=== PATIENT | female | born 1955 | race African-American/Black ===

== ENCOUNTER 2022-07-07 09:24 | Emergency (ER) | payer SELFPAY ==
--- NOTE | ~2022-07-07 | XR_ITS ---
EXAMINATION: XR HAND, LEFT CLINICAL INFORMATION: Fall. COMPARISON: None TECHNIQUE: PA, lateral, and oblique views of the left hand. FINDINGS: Age indeterminate deformity of the triquetrum/pisiform. Carpal rows alignment is maintained. Moderate degenerative arthritis of the first CMC joint. No unexpected radiopaque foreign bodies. XR/XR hand LT min 3V IMPRESSION: 1. Age indeterminate deformity of the triquetrum/pisiform. Correlate for point tenderness. 2. Moderate degenerative arthritis of the first CMC joint.
--- NOTE | ~2022-07-07 | XR_ITS ---
EXAMINATION: XR KNEE, RIGHT CLINICAL INFORMATION: Pain after fall. COMPARISON: None TECHNIQUE: Four views of the right knee. FINDINGS: No acute fracture or subluxation. Severe tricompartmental degenerative osteoarthritis with joint space narrowing, subcortical sclerosis and marginal osteophytes. Small joint effusion. No chondrocalcinosis. XR/XR knee RT 4V IMPRESSION: 1. No acute fracture or subluxation. 2. Severe tricompartmental degenerative osteoarthritis. 3. Small joint effusion.
[2022-07-07 10:15] VITALS: BP 134/74; PULSE 70; RESP 16; O2SAT 99; BMI 29.4
--- NOTE | 2022-07-07 11:02 | ED_ITS ---
HPI - Fall General Chief Complaint: Fall Stated Complaint: Fall Time Seen by Provider: 07/07/22 11:01 Source: patient Mode of arrival: ambulatory Limitations: no limitations History of Present Illness HPI Narrative: 67 yo female presents to the ER for evaluation right knee pain, back pain and left hand pain after she fell on the steps at home couple of days ago. She tried to come to the ER yesterday but ended up leaving without treatment because the wait was too long. She reports the right knee is swollen and painful when she walks. She also feels a ?bump? in the middle of her left hand. She fell with her hand outstretched. She reports her lower back hurts all across lower portion, worse with movement. She has been taking Tylenol with minimal relief. She is able to walk with a steady gait. She denies hitting her head or losing consciousness at the time of fall. She is not on a blood thinner. MD complaint: fall Onset (ago): day(s) (2) Fall from: standing Fall witnessed: no Place fall occurred: home Loss of consciousness: none Prolonged down time: no Symptoms prior to fall: none Context: tripped/slipped Location of injury: back Location of injury - extremities: left: hand and right: knee Severity: moderate Severity scale (1-10): 6 Quality: aching Associated symptoms (after fall): denies Related Data Previous Rx's Medication Instructions Recorded naproxen 500 mg tablet 500 mg PO BID PRN pain #20 tabs 07/07/22 Allergies Allergy/AdvReac Type Severity Reaction Status Date / Time No Known Allergies Allergy Verified 07/07/22 10:15 Review of Systems Review of Systems: Yes all other systems are reviewed and are negative [facility] Social History Social History Advance Directives: No Advance Directives Information Provided: No Physical Exam Vital Signs: Vital Signs: Last Vital Signs Temp 98.5 F 07/07/22 11:30 Pulse 76 07/07/22 11:30 Resp 20 07/07/22 11:30 BP 150/77 H 07/07/22 11:30 Pulse Ox 100 07/07/22 11:30 O2 Del Method 07/07/22 11:30 BMI result Body Mass Index 29.4 Appearance: Alert. Oriented X3. No acute distress. HEENT: normal inspection CVS: Normal heart rate and rhythm. Pulses normal. Respiratory: No respiratory distress. Skin: Skin warm and dry. Normal skin color. Normal skin turgor. No rashes. Extremities: Right knee with mild generalized swelling normal range of motion of the knee, no joint laxity appreciated. Pain with varus and valgus stress. Left hand with tenderness on the palmar aspect of the 3rd and 4th MCP. Equal performance improvement consultant strength bilaterally. Neurovascularly intact. 2+ radial pulse. Neuro: Oriented X 3. No motor deficit. No sensory deficit. Slow but steady gait Course Course Course Narrative: 67-year-old female presenting to the ER with right knee pain, left hand pain and low back pain after a mechanical fall 2 days ago. X-ray of the right knee is showing severe osteoarthritis and small joint effusion. X-ray of the left hand is showing question of a age indeterminate deformity of the triquetrum/pisiform. She has no point tenderness over this area. Unlikely acute fracture. Kathi from Orthopedics was contacted, recommended velcro wrist splint as needed for comfort. Knee was placed in Caesar wrap for compression and support. She was encouraged follow-up with orthopedics for further evaluation of her severe osteoarthritis. Patient stable for discharge home with anti-inflammatories, conservative management and follow-up with her PCP and Orthopedics. Patient agrees with plan. Medical Decision Making Differential Diagnosis Differential Diagnoses: The differential diagnosis associated with the presentation includes Knee sprain, strain, contusion, ligament injury, meniscus injury, arthritis, left hand contusion, acute fracture, low back strain, spasm, less likely fracture or compression deformity. Independent Interpretation I performed an independent interpretation of an: Plain X-Ray Interpretation: xr hand - no appreciated acute fracture of the bones in the hand Radiology Impression Discussion of test interpretation with radiology: I have reviewed the radiolog ist's reading. Radiologist Impression: left hand XRIMPRESSION: 1.? Age indeterminate deformity of the triquetrum/pisiform. Correlate for point tenderness. 2.? Moderate degenerative arthritis of the first CMC joint. XR/XR knee RT 4V IMPRESSION: 1.? No acute fracture or subluxation. 2.? Severe tricompartmental degenerative osteoarthritis. 3.? Small joint effusion. ? Prescription Management I considered prescription management with: Pain Medication NSAID for OA Critical Care Time Critical Care Time Critical Care Time: No Discharge Plan Discharge Clinical Impression: Osteoarthritis of right knee, Effusion of right knee, Left hand pain Patient Disposition: Home, Self-Care Instructions: Osteoarthritis (ED), Swollen Knee Joint (ED) Additional Instructions: Your knee x-ray showed severe degenerative osteoarthritis in the knee along with small amount of fluid. Recommend wearing the Caesar wrap for compression and support, recommend ice several times per day. Recommend following up with orthopedics for further evaluation. Your hand x-ray showed a possible ?deformity and ?of 1 of the bones in your hand, however this is not correlate with where he were tender on examination. There is no acute fractures in the x-ray. Where the provided velcro wrist splint as needed for comfort. Take the prescribed medication as needed for pain. Follow-up with primary care doctor If you develop new or worsening symptoms call 911 or come back to the ER for further evaluation. Prescriptions: New naproxen 500 mg tablet 500 mg PO BID PRN (Reason: pain) Qty: 20 0RF Referrals: [facility] [place] [facility] [Provider Group] Interventions: ED Discharge Assessment Last Done: 07/07/22 12:59 Discharge Date/Time: 07/07/22 12:59
[2022-07-07 11:30] VITALS: BP 150/77; PULSE 76; RESP 20; TEMP 36.9; O2SAT 100
--- NOTE | 2022-07-07 13:05 | MHC.EDTECH ---
Placed Left wrist splint on patient. Shasha Hannah
== END 2022-07-07 12:59 | disposition home or self-care (01) ==
PROVIDERS: Emergency Provider Emergency Medicine
DX: M17.11 Unilateral primary osteoarthritis, right knee (principal); M25.461 Effusion, right knee; M25.561 Pain in right knee; M79.642 Pain in left hand; Z91.81 History of falling
CPT/HCPCS: 73130; 73564; 99283

== ENCOUNTER 2022-09-03 14:31 | Outpatient (REF) | payer MEDICARE, MEDICAID, SELFPAY ==
--- NOTE | ~2022-09-03 | XR_ITS ---
EXAMINATION: XR KNEE, RIGHT XR KNEE, BILATERAL CLINICAL INFORMATION: Knee pain. COMPARISON: 07/07/2022 TECHNIQUE: AP standing view of both knees and sunrise view of the right knee. FINDINGS: There is again noted to be significant narrowing of the lateral joint space compartment with marginal spurring involving all 3 joint space compartments of the right knee. There is narrowing of the left medial joint space with bilateral spurring of the medial and lateral joint space compartments. There is noted to be spurring about the patellofemoral joint with some narrowing of the lateral joint space compartment. XR/XR knee standing BI IMPRESSION: Tricompartment degenerative change of the right knee. Degenerative change of the medial and lateral joint space compartments of the left knee, medial greater than lateral. No significant change.
--- NOTE | ~2022-09-03 | XR_ITS ---
EXAMINATION: XR KNEE, RIGHT XR KNEE, BILATERAL CLINICAL INFORMATION: Knee pain. COMPARISON: 07/07/2022 TECHNIQUE: AP standing view of both knees and sunrise view of the right knee. FINDINGS: There is again noted to be significant narrowing of the lateral joint space compartment with marginal spurring involving all 3 joint space compartments of the right knee. There is narrowing of the left medial joint space with bilateral spurring of the medial and lateral joint space compartments. There is noted to be spurring about the patellofemoral joint with some narrowing of the lateral joint space compartment. XR/XR knee RT 1V IMPRESSION: Tricompartment degenerative change of the right knee. Degenerative change of the medial and lateral joint space compartments of the left knee, medial greater than lateral. No significant change.
== END 2022-09-03 14:32 | disposition home or self-care (01) ==
LOC: HO.HOSX 14:31
PROVIDERS: Visit Provider Physician Assistant
DX: M17.11 Unilateral primary osteoarthritis, right knee (principal)
CPT/HCPCS: 20610; 73560; 73565; 99202; J1040

== ENCOUNTER → 2022-12-03 11:14 | Outpatient (BNVA) | payer MEDICARE, MEDICAID, SELFPAY | PROVIDERS: PCP Internal Medicine; Visit Provider Physician Assistant | DX: M17.11 Unilateral primary osteoarthritis, right knee (principal) | CPT/HCPCS: 20610; 99212; J1040 ==

== ENCOUNTER 2023-03-05 08:26 | Outpatient (AMB) | payer MEDICARE, MEDICAID, SELFPAY ==
--- NOTE | 2023-03-05 08:29 | A.OFFVIS_ITS ---
Intake Vital Signs 03/05/23 08:31 Height 5 ft 5 in Weight 175 lb BMI 29.1 Intake Visit Reasons: OV-Right knee injection-last injection 12/03/22 Intake Note: Ivonne is a 67 year old female who presents today for a follow up of her right knee, last injection was done on 12/03/22. Patient reports that this injection was only helpful for about 3 weeks now. She explains that she is having continued pain in the right knee causing her to limp. She is taking percocet for her pain, which does help. She is interested in doing anohter injection today. Allergies No Known Allergies Allergy (Verified 03/05/23 08:34) HPI OV-Right knee injection-last injection 12/03/22 HPI Details 67-year-old female who presents in the [facility] today for a follow up of right knee pain. The patient had a cortisone injection in the right knee on 12/03/2022, with about 3 weeks of relief. She reports the pain in her right knee is causing her to limp. She confirms that she is taking percocet for her pain, with relief. She is interested in repeating the cortisone injection today. [facility] Social History Patient Tobacco Use Status: Former Tobacco user Current occupational status: unemployed Current occupation: right handed Review of Systems Const All systems reviewed & are unremarkable except as noted in HPI and below Physical Exam Vital Signs: BMI result Body Mass Index 29.1 Const General: cooperative, healthy appearing and no acute distress Resp Effort & Inspection: normal respiratory effort and able to speak in complete sentences Cardio Rate: regular rate Peripheral pulses: Peripheral pulses 2+ throughout GI Palpation (GI): Soft to palpation Skin Lesions: no lesions Rashes: no rashes Extrem Other: Right knee: Normal to inspection. No ecchymosis, erythema, or joint effusion. No tenderness to palpation to the medial or lateral joint lines. Full knee extension and flexion. Crepitus felt with ROM. Negative Fabio's. NVI. Office Procedures Joint Injection/Drain Joint Injection/Drain Primary Site: right knee Prep: site was prepped using aseptic technique, ethochloride spray was applied and injection warnings given Injected: 80 mg of, DepoMedrol, with 8 mL of (2% plain lido ) and in the joint Procedure: The patient tolerated the procedure well, but had some pain with the injection and there was some relief with the local anesthesia Coding 61896 - Large joint Procedure code (CPT) selection complete Results Reviewed Results Reviewed: 03/05/23 08:35 Lidocaine HCl 2 % MPF [Xylocaine 2 % MPF] 5 ml .ROUTE .STK-MED ONE methylPREDNISolone acetate [DEPO-MedroL] 80 mg .ROUTE .STK-MED ONE Assessment & Plan Assessment & Plan (1) Patellofemoral arthritis of right knee: Code(s): M17.11 - Unilateral primary osteoarthritis, right knee (2) Osteoarthritis of right knee: Comment: several lateral compartment osteoarthritis Code(s): M17.11 - Unilateral primary osteoarthritis, right knee Qualifiers: Osteoarthritis type: unspecified Qualified Code(s): M17.11 - Unilateral primary osteoarthritis, right knee Plan Ms. Cox is a 67-year-old female who presents in the office today for a follow up of right knee pain. The patient had a cortisone injection in the right knee on 12/03/2022, with about 3 weeks of relief. She reports the pain in her right knee is causing her to limp. She confirms that she is taking percocet for her pain, with relief. She is interested in repeating the cortisone injection today. Ms. Cox is a 67-year-old female who presents in the office today for a follow up of right knee pain. The patient had a cortisone injection in the right knee on 12/03/2022, with about 3 weeks of relief. She reports the pain in her right knee is causing her to limp. She confirms that she is taking percocet for her pain, with relief. She is interested in repeating the cortisone injection today. I discussed in detail the procedure and what to expect pre and post operatively. We discussed the risks, benefits and alternatives to the surgery as well as the rehabilitation course. The risks; which include, but are not limited to infection, bleeding, nerve injury, ongoing pain, swelling, and stiffness, perioperative risk of injury to bones and soft tissues, and blood clots. I talked to the patient about a right total knee arthroplasty. She expresses that she has no help at home. I discussed with her that we can arrange acute rehab after surgery until she is able to demonstrate she can perform daily living activities on her own. She would like to avoid this at this time. Follow up will be PRN, or sooner if needed. Patient Instructions: Scribed for Kathi Martin PA-C by Yesy Seo medical appointment scheduler, on 03/05/2023 at 8:28 am, EST. Coding Level of Care Code Est Pt Level 4 (59502) Diagnoses Patellofemoral arthritis of right knee M17.11 Osteoarthritis of right knee, unspecified osteoarthritis type M17.11 Osteoarthritis type: unspecified CPT Codes Coding - 15596 Large joint: 90962 - Large joint ([id number])
[2023-03-05 08:31] VITALS: BMI 29.1
== END 2023-03-05 08:56 | disposition home or self-care (01) ==
PROVIDERS: PCP Internal Medicine; Visit Provider Physician Assistant
DX: M17.11 Unilateral primary osteoarthritis, right knee (principal)
CPT/HCPCS: 20610; 99214

== ENCOUNTER → 2023-03-05 08:26 | Outpatient (BNVA) | payer MEDICARE, MEDICAID, SELFPAY | PROVIDERS: PCP Internal Medicine; Visit Provider Physician Assistant | DX: M17.11 Unilateral primary osteoarthritis, right knee (principal) | CPT/HCPCS: 20610; 99212; J1040 ==